=== PATIENT | male | born 1965 | race Caucasian/White ===

== ENCOUNTER 2023-08-13 08:28 | Day surgery (SDC) | payer MEDICAID, OTHER ==
[~2023-08-13] VITALS: Ht 180.3 cm; Wt 71.7 kg
[2023-08-13] MEDS ORDERED: MEPERIDINE 100 MG INJ. 100 MG/ML VIAL ONE (11:14)
[2023-08-13] MEDS ORDERED: SIMETHICONE 40 MG/0.6 ML ML ONE (11:14)
[2023-08-13] MEDS ORDERED: MIDAZOLAM HCL 5 MG/5 ML VIAL ONE (11:15)
[2023-08-13 13:18] VITALS: TEMP 97.6; O2SAT 100
[2023-08-13 18:16] VITALS: BP_SYST 104; PULSE 55; RESP 10
== END 2023-08-13 12:35 | disposition home or self-care (01) ==
LOC: SDS 08:28 → SMU 08:29 → SDS 12:35
PROVIDERS: ATTEND Internal Medicine Gastroenterology
DX: Z12.11 Encounter for screening for malignant neoplasm of colon (principal); K64.8 Other hemorrhoids; I10 Essential (primary) hypertension
CPT/HCPCS: 45378; 99152; G0378; J2250; J2175